=== PATIENT | female | born 1980 | race African-American/Black ===

== ENCOUNTER 2016-11-26 15:39 | Emergency (ER) | payer MEDICAID ==
[~2016-11-26 15:39] MED LIST: BACTRIM DS TABL1 TA1 PO; FIORICET 50-321 EACH PO; IBUPROFEN800 MG PO; KEFLEX500 MG PO; LORTAB 5/500 TA1 TA1 PO; NAPROXEN PO; NEURONTIN100 MG PO; NO MEDICATIONS; PARLODEL2.5 MG PO; PEN-VEE K PO; PENICILLIN PO; PHENERGAN PO; PHENERGAN25 MG PO; ULTRAM PO; VICODIN 5/1 TAB 5/50 PO; VICODIN 5/500 T1 TAB PO
== END 2016-11-26 15:41 | disposition home or self-care (01) ==
LOC: CFTX 15:39
DX: S16.1XXA Strain of muscle, fascia and tendon at neck level, initial encounter (principal); F17.210 Nicotine dependence, cigarettes, uncomplicated; X58.XXXA Exposure to other specified factors, initial encounter; Y99.0 Civilian activity done for income or pay
CPT/HCPCS: 99283